=== PATIENT | female | born 1955 | race Caucasian/White ===

== ENCOUNTER 2016-07-04 16:15 | Emergency (ER) | payer MEDICARE, MEDICAID ==
[~2016-07-04] VITALS: Ht 160 cm; Wt 104.5 kg
[~2016-07-04 16:15] MED LIST: ACTOS 45MG45 MG/TAB PO; ANTIVERT 25MG25 MG PO; BACTRIM DS 8001 TAB PO; BENADRYL; BENTYL 20MG TAB20 MG PO; BENTYL 20MG20 MG/TAB PO; CARAFATE 1GM1 G PO; CIPRO 500MG TA500 MG PO; COZAAR 50MG50 MG/TAB PO; CYCLOBENZAPRINE10 MG PO; DARVOCET N 101 UDTAB PO; KLONOPIN 0.5MG0.5 MG PO; LANTUS100 U/ML SQ; LEVAQUIN 5500 MG/TA1 PO; LEVAQUIN 750MG750 M1 PO; LEVOTHYROXINE PO; LEVOXYL0.15 MG PO; LEXAPRO 10MG10 MG PO; MACROBID 1100 MG/CAP PO; NOVOLOG FLEX100 U/ML SQ; PERCOCET 325 MG1 TA2 PO; PERCOCET 5/321 UDTAB PO; PREDNISONE10 MG PO; PRILOSEC 20MG20 MG PO; SYNTHROID0.2 MG/TAB PO; TYLENOL 325MG325 MG PO; WELLBUTRIN 75MG75 MG PO; WELLBUTRIN XL150 MG PO; WELLBUTRIN XL300 M1 PO; ZOCOR 40MG40 MG PO; ZOFRAN 4MG T4 MG/TAB PO
[2016-07-04 17:20] LABS: BASO # 0.1 (0.0-0.2); BASO % 0.7 % (0.0-2.0); EOS # 0.1 (0.0-0.7); EOS % 1.3 % (0-4.0); GRAN % 71.1 % (42.2-75.2); HEMOGLOBIN 13.8 g/dl (12.5-16.0); LYMPH # 1.9 (1.2-3.4); LYMPH % 22.7 % (20.0-51.0); MEAN CELL VOLUME 96 fl (80.0-100.0); MEAN CORPUSCULAR HEMOGLOBIN 33 pg (27.0-31.0); MEAN CORPUSCULAR HGB CONC 35 g/dl (33.0-37.0); MEAN PLATELET VOLUME 11.4 fl (7.4-10.4); MONO # 0.3 (0.1-0.6); MONO % 3.8 % (1.7-9.3); PLATELET COUNT 216 K/mm3 (130-400); RED BLOOD COUNT 4.19 M/mm3 (4.10-5.30); WHITE BLOOD COUNT 8.4 K/mm3 (4.8-10.8)
[2016-07-04 18:14] LABS: ADJUSTED CALCIUM 8.9 mg/dL (8.4-10.2); ALANINE AMINOTRANSFERASE 40 U/L (9-52); ALBUMIN 4.5 gm/dL (3.5-5.0); ALKALINE PHOSPHATASE 126 U/L (50-136); ANION GAP 14 mmol/L (7-16); BLOOD UREA NITROGEN 15 mg/dL (7-17); C-REACTIVE PROTEIN 1.4 mg/dL (0.0-0.9); CALCIUM 9.3 mg/dL (8.4-10.2); CARBON DIOXIDE 23 mmol/L (22-30); CHLORIDE 99 mmol/L (98-107); CREATININE, serum 1.16 mg/dL (0.52-1.25); GLUCOSE 354 mg/dL (74-106); MAGNESIUM 1.7 mg/dL (1.6-2.3); POTASSIUM 4.2 mmol/L (3.4-5.0); SODIUM 136 mmol/L (137-145); TOTAL PROTEIN 8.1 gm/dL (6.4-8.2)
[2016-07-04 18:23] LABS: B-TYPE NATRIURETIC PEPTIDE 28 pg/mL (0-125); TROPONIN-I < 0.012 ng/mL (0.000-0.034)
[2016-07-04] MEDS ORDERED: FLEXERIL 1010 MG/TAB PO (19:19)
[2016-07-04] MEDS ORDERED: NORCO 325 MG-51 TAB PO (19:19)
[2016-07-04 19:33] VITALS: BP 140/88; PULSE 90
== END 2016-07-04 19:32 | disposition home or self-care (01) ==
LOC: COL.ER 16:15
PROVIDERS: Emergency Medicine
DX: S43.402A Unspecified sprain of left shoulder joint, initial encounter (principal); S46.912A Strain of unspecified muscle, fascia and tendon at shoulder and upper arm level, left arm, initial encounter; X50.0XXA Overexertion from strenuous movement or load, initial encounter; I25.2 Old myocardial infarction; E11.9 Type 2 diabetes mellitus without complications; Z79.4 Long term (current) use of insulin
CPT/HCPCS: J1200; J2550; J3010; J7050

== ENCOUNTER 2016-07-08 18:34 | Emergency (ER) | payer MEDICARE, MEDICAID ==
[~2016-07-08] VITALS: Ht 160 cm; Wt 104.5 kg
[~2016-07-08 18:34] MED LIST changes: +FLEXERIL 1010 MG/TAB PO; +NORCO 325 MG-51 TAB PO
[2016-07-08 18:37] VITALS: BP 139/88; TEMP 97.6
[2016-07-08 21:21] VITALS: PULSE 80
== END 2016-07-08 21:00 | disposition home or self-care (01) ==
LOC: COL.ER 18:34
DX: S40.012A Contusion of left shoulder, initial encounter (principal); S16.1XXA Strain of muscle, fascia and tendon at neck level, initial encounter; Y04.2XXA Assault by strike against or bumped into by another person, initial encounter; Y92.009 Unspecified place in unspecified non-institutional (private) residence as the place of occurrence of the external cause

== ENCOUNTER 2016-07-17 16:12 | Observation (INO) | payer MEDICARE, MEDICAID ==
[~2016-07-17] VITALS: Ht 160 cm; Wt 101.8 kg
[2016-07-17 16:40] LABS: BASO % 0.4 % (0.0-2.0); EOS # 0.1 (0.0-0.7); EOS % 1.3 % (0-4.0); GRAN # 7.4 (1.4-6.5); GRAN % 76.6 % (42.2-75.2); HEMATOCRIT 41.8 % (37.0-47.0); HEMOGLOBIN 14.2 g/dl (12.5-16.0); LYMPH # 1.7 (1.2-3.4); LYMPH % 17.5 % (20.0-51.0); MEAN CELL VOLUME 97 fl (80.0-100.0); MEAN CORPUSCULAR HEMOGLOBIN 33 pg (27.0-31.0); MEAN CORPUSCULAR HGB CONC 34 g/dl (33.0-37.0); MEAN PLATELET VOLUME 9.9 fl (7.4-10.4); MONO # 0.4 (0.1-0.6); MONO % 3.8 % (1.7-9.3); PLATELET COUNT 258 K/mm3 (130-400); RED BLOOD COUNT 4.29 M/mm3 (4.10-5.30); REDCELL DISTRIBUTION WIDTH-CV 12.7 % (11.5-14.5); WHITE BLOOD COUNT 9.6 K/mm3 (4.8-10.8)
[2016-07-17 16:52] LABS: ADJUSTED CALCIUM 9.5 mg/dL (8.4-10.2); ALANINE AMINOTRANSFERASE 61 U/L (9-52); ALBUMIN 4.6 gm/dL (3.5-5.0); ALKALINE PHOSPHATASE 157 U/L (50-136); ANION GAP 15 mmol/L (7-16); BLOOD UREA NITROGEN 17 mg/dL (7-17); CARBON DIOXIDE 27 mmol/L (22-30); CHLORIDE 92 mmol/L (98-107); CREATININE, serum 1.23 mg/dL (0.52-1.25); GLUCOSE 393 mg/dL (74-106); POTASSIUM 4.9 mmol/L (3.4-5.0); SODIUM 135 mmol/L (137-145); TOTAL PROTEIN 8.5 gm/dL (6.4-8.2)
[2016-07-17 16:57] LABS: ACETAMINOPHEN < 10 ug/mL (10-30); SALICYLATE < 1.0 mg/dL
[2016-07-17 17:15] LABS: PH 5 (5-8); URINE APPEARANCE Hazy; URINE BACTERIA Many /hpf; URINE BILIRUBIN Negative (NEGATIVE); URINE BLOOD 2+ (NEGATIVE); URINE COLOR Yellow; URINE GLUCOSE 3+ (NEGATIVE); URINE KETONE Trace (NEGATIVE); URINE UROBILINOGEN Negative (NEGATIVE); URINE WBC >50 /hpf
[2016-07-17 17:25] LABS: AMPHETAMINE URINE NEGATIVE; BARBITURATES URINE NEGATIVE; BENZODIAZEPINES URINE NEGATIVE; BUPRENORPHINE URINE NEGATIVE; METHADONE URINE NEGATIVE; OPIATES URINE NEGATIVE; OXYCODONE URINE NEGATIVE; PHENCYCLIDINE URINE NEGATIVE; PROPOXYPHENE URINE NEGATIVE; THC CANNABINOIDS URINE NEGATIVE
[2016-07-17 19:06] LABS: TROPONIN-I < 0.012 ng/mL (0.000-0.034)
[2016-07-18] VITALS (86 sets, daily range): BP systolic 100–111; BP diastolic 60–69; PULSE 84–86; TEMP 97.2–98.1; O2SAT 91–100
[2016-07-19 06:46] LABS: ADJUSTED CALCIUM 9.3 mg/dL (8.4-10.2); ALBUMIN 4.3 gm/dL (3.5-5.0); BILIRUBIN,TOTAL 0.8 mg/dL (0.0-1.0); CALCIUM 9.5 mg/dL (8.4-10.2); CREATININE, serum 1.37 mg/dL (0.52-1.25); POTASSIUM 3.9 mmol/L (3.4-5.0)
[2016-07-19 07:18] VITALS: BP 122/54; PULSE 76; TEMP 97.3
== END 2016-07-19 10:44 ==
LOC: COL.ER 16:12 → ICU 07-18 11:46
PROVIDERS: Emergency Medicine; Psychiatry & Neurology Psychiatry
DX: F33.2 Major depressive disorder, recurrent severe without psychotic features (principal); F41.1 Generalized anxiety disorder; E11.9 Type 2 diabetes mellitus without complications; Z91.14 Patient's other noncompliance with medication regimen; N39.0 Urinary tract infection, site not specified; E03.9 Hypothyroidism, unspecified
CPT/HCPCS: 90791-AI; G0378; G0379; J0696; J1815; J8540

== ENCOUNTER 2016-07-19 12:16 | Observation (INO) | payer MEDICARE, MEDICAID ==
[~2016-07-19] VITALS: Ht 160 cm; Wt 101.8 kg
[2016-07-19 13:56] VITALS: BP 123/76; PULSE 78
[2016-07-19 14:30] VITALS: BP 123/76; PULSE 76; TEMP 97.3
[2016-07-19 20:01] VITALS: BP 111/60; PULSE 81; TEMP 97.7
[2016-07-20 06:38] LABS: ADJUSTED CALCIUM 9.2 mg/dL (8.4-10.2); ALBUMIN 4.2 gm/dL (3.5-5.0); BILIRUBIN,TOTAL 0.7 mg/dL (0.0-1.0); C-REACTIVE PROTEIN 1.8 mg/dL (0.0-0.9); CALCIUM 9.4 mg/dL (8.4-10.2); CREATININE, serum 1.23 mg/dL (0.52-1.25); POTASSIUM 3.9 mmol/L (3.4-5.0); TOTAL PROTEIN 7.6 gm/dL (6.4-8.2)
[2016-07-20 09:00] VITALS: BP 101/52; PULSE 70; TEMP 97
[2016-07-20 21:00] VITALS: BP 106/55; PULSE 78; TEMP 98.1
[2016-07-20 21:17] VITALS: O2SAT 93
[2016-07-21 06:12] LABS: ADJUSTED CALCIUM 9.4 mg/dL (8.4-10.2); ALBUMIN 4.3 gm/dL (3.5-5.0); BILIRUBIN,TOTAL 0.8 mg/dL (0.0-1.0); CALCIUM 9.6 mg/dL (8.4-10.2); CREATININE, serum 1.14 mg/dL (0.52-1.25); POTASSIUM 4.5 mmol/L (3.4-5.0); TOTAL PROTEIN 7.8 gm/dL (6.4-8.2)
[2016-07-21 06:42] LABS: THYROID STIMULATING HORMONE 42.7 uIU/mL (0.465-4.680)
[2016-07-21 08:00] VITALS: BP 120/66; PULSE 64; TEMP 97.3
== END 2016-07-21 18:14 ==
LOC: ICU 12:16
PROVIDERS: Psychiatry & Neurology Psychiatry
DX: R45.851 Suicidal ideations (principal); F33.9 Major depressive disorder, recurrent, unspecified; F39 Unspecified mood [affective] disorder; F41.9 Anxiety disorder, unspecified; E11.9 Type 2 diabetes mellitus without complications; F32.9 Major depressive disorder, single episode, unspecified
CPT/HCPCS: G0378; G0379; J1815; J8540

== ENCOUNTER 2016-09-28 16:07 | Emergency (ER) | payer MEDICARE, MEDICAID ==
[~2016-09-28] VITALS: Ht 160 cm; Wt 109.1 kg
[2016-09-28 16:10] VITALS: BP 112/74; TEMP 98.8
[2016-09-28 16:49] LABS: BASO % 0.3 % (0.0-2.0); EOS # 0.1 (0.0-0.7); EOS % 0.4 % (0-4.0); GRAN # 11.2 (1.4-6.5); GRAN % 79.9 % (42.2-75.2); LYMPH % 14.2 % (20.0-51.0); MEAN CELL VOLUME 93 fl (80.0-100.0); MEAN CORPUSCULAR HGB CONC 34 g/dl (33.0-37.0); MONO # 0.7 (0.1-0.6); MONO % 4.9 % (1.7-9.3); PLATELET COUNT 260 K/mm3 (130-400); RED BLOOD COUNT 3.76 M/mm3 (4.10-5.30); REDCELL DISTRIBUTION WIDTH-CV 12.7 % (11.5-14.5)
[2016-09-28 16:53] LABS: HEMOGLOBIN 11.8 g/dl (12.5-16.0); MEAN CORPUSCULAR HEMOGLOBIN 31 pg (27.0-31.0)
[2016-09-28 17:00] LABS: ADJUSTED CALCIUM 8.9 mg/dL (8.4-10.2); ALANINE AMINOTRANSFERASE 51 U/L (9-52); ALBUMIN 4.1 gm/dL (3.5-5.0); ALKALINE PHOSPHATASE 85 U/L (50-136); ANION GAP 13 mmol/L (7-16); BILIRUBIN,TOTAL 0.6 mg/dL (0.0-1.0); BLOOD UREA NITROGEN 20 mg/dL (7-17); CARBON DIOXIDE 25 mmol/L (22-30); CHLORIDE 101 mmol/L (98-107); CREATININE, serum 1.15 mg/dL (0.52-1.25); GLUCOSE 146 mg/dL (74-106); LIPASE 256 U/L (23-300); POTASSIUM 4.1 mmol/L (3.4-5.0); SODIUM 139 mmol/L (137-145); TOTAL PROTEIN 7.3 gm/dL (6.4-8.2)
[2016-09-28 18:24] LABS: PH 6 (5-8); SQUAMOUS EPITHELIAL 0-2 /hpf; URINE APPEARANCE Clear; URINE BACTERIA Occasional /hpf; URINE BILIRUBIN Negative (NEGATIVE); URINE BLOOD Negative (NEGATIVE); URINE COLOR Yellow; URINE GLUCOSE Negative (NEGATIVE); URINE KETONE Trace (NEGATIVE); URINE UROBILINOGEN Negative (NEGATIVE)
[2016-09-28 18:25] LABS: URINE WBC 20-50 /hpf
[2016-09-28] MEDS ORDERED: OMNICEF 300MG300 MG PO (18:40)
[2016-09-28] MEDS ORDERED: ZOFRAN 4MG T4 MG/TAB PO (18:40)
[2016-09-28 19:15] VITALS: PULSE 75
== END 2016-09-28 19:18 | disposition home or self-care (01) ==
LOC: COL.ER 16:07
PROVIDERS: Emergency Medicine
DX: N39.0 Urinary tract infection, site not specified (principal); R11.2 Nausea with vomiting, unspecified; B96.20 Unspecified Escherichia coli [E. coli] as the cause of diseases classified elsewhere; J44.9 Chronic obstructive pulmonary disease, unspecified; E10.9 Type 1 diabetes mellitus without complications; I10 Essential (primary) hypertension; I25.2 Old myocardial infarction; G40.409 Other generalized epilepsy and epileptic syndromes, not intractable, without status epilepticus; Z95.9 Presence of cardiac and vascular implant and graft, unspecified; Z98.890 Other specified postprocedural states
CPT/HCPCS: J0696; J2405; J2550; J7030

== ENCOUNTER 2016-10-05 12:27 | Emergency (ER) | payer MEDICARE, MEDICAID ==
[~2016-10-05] VITALS: Ht 160 cm; Wt 109.1 kg
[~2016-10-05 12:27] MED LIST changes: +OMNICEF 300MG300 MG PO
[2016-10-05 12:29] VITALS: TEMP 97.5
[2016-10-05] MEDS ORDERED: MYCOSTATIN100000 U/G TP (12:43)
[2016-10-05] MEDS ORDERED: DESITIN MAXIMUM S40% TP (12:46)
[2016-10-05] MEDS ORDERED: HCTZ 25MG TAB25 MG PO (12:48)
[2016-10-05 13:01] LABS: BASO % 0.3 % (0.0-2.0); EOS # 0.2 (0.0-0.7); EOS % 2.3 % (0-4.0); GRAN # 6.7 (1.4-6.5); GRAN % 72.2 % (42.2-75.2); HEMATOCRIT 37.6 % (37.0-47.0); HEMOGLOBIN 12.7 g/dl (12.5-16.0); LYMPH # 1.9 (1.2-3.4); LYMPH % 20.5 % (20.0-51.0); MEAN CELL VOLUME 93 fl (80.0-100.0); MEAN CORPUSCULAR HEMOGLOBIN 31 pg (27.0-31.0); MEAN CORPUSCULAR HGB CONC 34 g/dl (33.0-37.0); MEAN PLATELET VOLUME 9.6 fl (7.4-10.4); MONO # 0.4 (0.1-0.6); MONO % 4.4 % (1.7-9.3); PLATELET COUNT 239 K/mm3 (130-400); RED BLOOD COUNT 4.06 M/mm3 (4.10-5.30); REDCELL DISTRIBUTION WIDTH-CV 13.1 % (11.5-14.5); WHITE BLOOD COUNT 9.3 K/mm3 (4.8-10.8)
[2016-10-05 13:16] LABS: ADJUSTED CALCIUM 8.4 mg/dL (8.4-10.2); ALANINE AMINOTRANSFERASE 48 U/L (9-52); ALKALINE PHOSPHATASE 86 U/L (50-136); ANION GAP 13 mmol/L (7-16); BILIRUBIN,TOTAL 0.7 mg/dL (0.0-1.0); BLOOD UREA NITROGEN 15 mg/dL (7-17); CALCIUM 8.4 mg/dL (8.4-10.2); CARBON DIOXIDE 25 mmol/L (22-30); CHLORIDE 101 mmol/L (98-107); CREATININE, serum 0.95 mg/dL (0.52-1.25); GLUCOSE 233 mg/dL (74-106); POTASSIUM 4.2 mmol/L (3.4-5.0); SODIUM 138 mmol/L (137-145)
[2016-10-05] MEDS ORDERED: PRIL40 PO (13:25)
[2016-10-05] MEDS ORDERED: PEPCID 20MG TAB20 MG PO (13:25)
[2016-10-05] MEDS ORDERED: VITAMIN D 400400 IU PO (13:27)
[2016-10-05] MEDS ORDERED: NEURONTIN300 MG/CAP PO (13:27)
[2016-10-05] MEDS ORDERED: GLUCOPHAGE500 MG/TAB PO (13:28)
[2016-10-05] MEDS ORDERED: EYE DROP ORIGIN15 ML OP (13:28)
[2016-10-05] MEDS ORDERED: CELEXA40 MG PO (13:33)
[2016-10-05] MEDS ORDERED: COLACE 100100 MG/CAP PO (13:35)
[2016-10-05] MEDS ORDERED: MI-ACID 200 MG-1 CT1 PO (13:36)
[2016-10-05] MEDS ORDERED: SEROQUEL300 MG PO (13:37)
[2016-10-05 14:01] LABS: PH 5 (5-8); URINE APPEARANCE Hazy; URINE BACTERIA Rare /hpf; URINE BILIRUBIN Negative (NEGATIVE); URINE BLOOD Negative (NEGATIVE); URINE COLOR Yellow; URINE GLUCOSE Negative (NEGATIVE); URINE KETONE Negative (NEGATIVE); URINE UROBILINOGEN Negative (NEGATIVE)
[2016-10-05] MEDS ORDERED: CIPRO 500MG TA500 MG PO (15:08)
[2016-10-05 15:14] LABS: TROPONIN-I < 0.012 ng/mL (0.000-0.034)
[2016-10-05 16:02] VITALS: BP 123/62; PULSE 65
== END 2016-10-05 16:01 | disposition home or self-care (01) ==
LOC: COL.ER 12:27
PROVIDERS: Emergency Medicine
DX: R11.2 Nausea with vomiting, unspecified (principal); R10.84 Generalized abdominal pain; N39.0 Urinary tract infection, site not specified; B96.20 Unspecified Escherichia coli [E. coli] as the cause of diseases classified elsewhere; E11.9 Type 2 diabetes mellitus without complications; Z91.14 Patient's other noncompliance with medication regimen; Z59.0 Homelessness; E66.9 Obesity, unspecified; Z68.41 Body mass index [BMI] 40.0-44.9, adult; Z79.4 Long term (current) use of insulin
CPT/HCPCS: J0696; J2765; J7030

== ENCOUNTER 2017-01-01 16:55 | Emergency (ER) | payer MEDICARE ==
[~2017-01-01] VITALS: Ht 162.6 cm; Wt 104.5 kg
[~2017-01-01 16:55] MED LIST changes: +CELEXA40 MG PO; +COLACE 100100 MG/CAP PO; +DESITIN MAXIMUM S40% TP; +EYE DROP ORIGIN15 ML OP; +GLUCOPHAGE500 MG/TAB PO; +HCTZ 25MG TAB25 MG PO; +MI-ACID 200 MG-1 CT1 PO; +MYCOSTATIN100000 U/G TP; +NEURONTIN300 MG/CAP PO; +PEPCID 20MG TAB20 MG PO; +PRIL40 PO; +SEROQUEL300 MG PO; +VITAMIN D 400400 IU PO
[2017-01-01 16:57] VITALS: TEMP 97.4
[2017-01-01] MEDS ORDERED: NEXIUM 40MG40 MG PO (17:21)
[2017-01-01] MEDS ORDERED: LANTUS SOLOS100 U/ML SQ (17:23)
[2017-01-01] MEDS ORDERED: SYNTHROID 0.0.025 MG PO (17:24)
[2017-01-01 18:29] LABS: BASO % 0.4 % (0.0-2.0); EOS # 0.2 (0.0-0.7); EOS % 2.3 % (0-4.0); GRAN # 6.1 (1.4-6.5); GRAN % 67.7 % (42.2-75.2); HEMOGLOBIN 12.5 g/dl (12.5-16.0); LYMPH # 2.2 (1.2-3.4); LYMPH % 24.9 % (20.0-51.0); MEAN CELL VOLUME 91 fl (80.0-100.0); MEAN CORPUSCULAR HEMOGLOBIN 31 pg (27.0-31.0); MEAN CORPUSCULAR HGB CONC 35 g/dl (33.0-37.0); MEAN PLATELET VOLUME 10.4 fl (7.4-10.4); MONO # 0.4 (0.1-0.6); MONO % 4.4 % (1.7-9.3); PLATELET COUNT 222 K/mm3 (130-400); RED BLOOD COUNT 3.98 M/mm3 (4.10-5.30); REDCELL DISTRIBUTION WIDTH-CV 13.4 % (11.5-14.5)
[2017-01-01 18:34] LABS: HEMATOCRIT 36.2 % (37.0-47.0)
[2017-01-01 18:42] LABS: ADJUSTED CALCIUM 9.4 mg/dL (8.4-10.2); ALANINE AMINOTRANSFERASE 33 U/L (9-52); ALBUMIN 3.8 gm/dL (3.5-5.0); ALKALINE PHOSPHATASE 96 U/L (50-136); ANION GAP 10 mmol/L (7-16); BILIRUBIN,TOTAL 0.4 mg/dL (0.0-1.0); BLOOD UREA NITROGEN 20 mg/dL (7-17); CALCIUM 9.2 mg/dL (8.4-10.2); CARBON DIOXIDE 28 mmol/L (22-30); CHLORIDE 100 mmol/L (98-107); CREATININE, serum 1.05 mg/dL (0.52-1.25); GLUCOSE 241 mg/dL (74-106); POTASSIUM 4.6 mmol/L (3.4-5.0); SODIUM 138 mmol/L (137-145); TOTAL PROTEIN 6.7 gm/dL (6.4-8.2)
[2017-01-01 18:53] LABS: ACETAMINOPHEN < 10 ug/mL (10-30); SALICYLATE < 1.0 mg/dL
[2017-01-01 19:54] LABS: AMPHETAMINE URINE NEGATIVE; BARBITURATES URINE NEGATIVE; BENZODIAZEPINES URINE NEGATIVE; BUPRENORPHINE URINE NEGATIVE; METHADONE URINE NEGATIVE; OPIATES URINE NEGATIVE; OXYCODONE URINE NEGATIVE; PHENCYCLIDINE URINE NEGATIVE; PROPOXYPHENE URINE NEGATIVE; THC CANNABINOIDS URINE NEGATIVE
[2017-01-01 20:32] VITALS: BP 121/71; PULSE 72
== END 2017-01-01 20:34 | disposition home or self-care (01) ==
LOC: COL.ER 16:55
PROVIDERS: Emergency Medicine
DX: T42.4X1A Poisoning by benzodiazepines, accidental (unintentional), initial encounter (principal); F32.9 Major depressive disorder, single episode, unspecified; F41.9 Anxiety disorder, unspecified; E11.9 Type 2 diabetes mellitus without complications; E03.9 Hypothyroidism, unspecified; Z79.4 Long term (current) use of insulin; Z90.49 Acquired absence of other specified parts of digestive tract
CPT/HCPCS: J7030

== ENCOUNTER 2017-01-18 12:50 | Emergency (ER) | payer MEDICARE ==
[~2017-01-18] VITALS: Ht 160 cm; Wt 109.1 kg
[~2017-01-18 12:50] MED LIST changes: +LANTUS SOLOS100 U/ML SQ; +NEXIUM 40MG40 MG PO; +SYNTHROID 0.0.025 MG PO
[2017-01-18 12:57] VITALS: TEMP 98.1
[2017-01-18 13:55] LABS: BASO % 0.3 % (0.0-2.0); EOS % 0.3 % (0-4.0); GRAN # 10.6 (1.4-6.5); GRAN % 76.5 % (42.2-75.2); HEMATOCRIT 37.1 % (37.0-47.0); HEMOGLOBIN 12.8 g/dl (12.5-16.0); LYMPH # 2.5 (1.2-3.4); LYMPH % 18.2 % (20.0-51.0); MEAN CELL VOLUME 91 fl (80.0-100.0); MEAN CORPUSCULAR HEMOGLOBIN 31 pg (27.0-31.0); MEAN CORPUSCULAR HGB CONC 35 g/dl (33.0-37.0); MEAN PLATELET VOLUME 10.2 fl (7.4-10.4); MONO # 0.6 (0.1-0.6); MONO % 4.4 % (1.7-9.3); PLATELET COUNT 241 K/mm3 (130-400); RED BLOOD COUNT 4.07 M/mm3 (4.10-5.30); REDCELL DISTRIBUTION WIDTH-CV 12.8 % (11.5-14.5); WHITE BLOOD COUNT 13.8 K/mm3 (4.8-10.8)
[2017-01-18 14:00] LABS: INR 1.2 (0.8-3.0); PROTHROMBIN TIME 12.8 SECONDS (9.7-12.8)
[2017-01-18 14:28] LABS: ADJUSTED CALCIUM 9.1 mg/dL (8.4-10.2); ALBUMIN 4.3 gm/dL (3.5-5.0); CALCIUM 9.3 mg/dL (8.4-10.2); CREATININE, serum 1.25 mg/dL (0.52-1.25); TOTAL PROTEIN 7.5 gm/dL (6.4-8.2)
[2017-01-18 14:38] LABS: VENOUS BLOOD GAS BE -1.3 (-4-4); VENOUS BLOOD GAS SAO2 86.6 % (60-80)
[2017-01-18 14:39] LABS: VENOUS BLOOD GAS SITE VENIPUNCTURE
[2017-01-18 15:32] LABS: PH 5 (5-8); URINE APPEARANCE Hazy; URINE BACTERIA Moderate /hpf; URINE BILIRUBIN Negative (NEGATIVE); URINE BLOOD Negative (NEGATIVE); URINE COLOR Yellow; URINE GLUCOSE 3+ (NEGATIVE); URINE KETONE 1+ (NEGATIVE); URINE RBC 0-2 /hpf; URINE UROBILINOGEN Negative (NEGATIVE); URINE WBC 20-50 /hpf
[2017-01-18] MEDS ORDERED: OMNICEF 300MG300 MG PO ×2 (15:59→16:12)
[2017-01-18 16:49] VITALS: BP 106/58; PULSE 86
[2017-01-19] MEDS ORDERED: CIPRO 250MG TA250 MG PO (11:59)
[2017-01-19] MEDS ORDERED: VENTOLIN0.09 MG IH (12:00)
[2017-01-19] MEDS ORDERED: BENTYL 20MG20 MG/TAB PO (12:00)
[2017-01-19] MEDS ORDERED: SYNTHROID0.1 MG/TAB PO (12:01)
[2017-01-19] MEDS ORDERED: LANTUS SOLOS100 U/ML SQ (12:02)
[2017-01-19] MEDS ORDERED: KLONOPIN 0.5MG0.5 MG PO (12:02)
== END 2017-01-18 16:52 | disposition home or self-care (01) ==
LOC: COL.ER 12:50
PROVIDERS: Emergency Medicine
DX: N39.0 Urinary tract infection, site not specified (principal); R53.1 Weakness; Z59.0 Homelessness; E11.9 Type 2 diabetes mellitus without complications; Z79.4 Long term (current) use of insulin
CPT/HCPCS: J0696; J2405; J7030; Q9967

== ENCOUNTER 2017-01-18 19:15 | Observation (INO) | payer MEDICARE ==
[~2017-01-18] VITALS: Ht 160 cm; Wt 96.5 kg
[2017-01-18 20:05] LABS: HEMOGLOBIN 12.5 g/dl (12.5-16.0); MEAN CELL VOLUME 92 fl (80.0-100.0); MEAN CORPUSCULAR HEMOGLOBIN 31 pg (27.0-31.0); MEAN CORPUSCULAR HGB CONC 34 g/dl (33.0-37.0); MEAN PLATELET VOLUME 10.3 fl (7.4-10.4); PLATELET COUNT 257 K/mm3 (130-400)
[2017-01-18 20:16] LABS: ADD PATHOLOGY DIFF REVIEW NO; HEMATOCRIT 36.6 % (37.0-47.0)
[2017-01-18 20:24] LABS: ADJUSTED CALCIUM 8.9 mg/dL (8.4-10.2); ALBUMIN 4.1 gm/dL (3.5-5.0); BILIRUBIN,TOTAL 0.7 mg/dL (0.0-1.0); C-REACTIVE PROTEIN 4.9 mg/dL (0.0-0.9); CREATININE, serum 1.31 mg/dL (0.52-1.25); TOTAL PROTEIN 7.3 gm/dL (6.4-8.2)
[2017-01-18 20:33] LABS: BAND 5 % (0-10); EOSINOPHIL 1 % (0-4); LYMPHOCYTE 23 % (20.0-51.0); NEUTROPHILS 68 % (42.0-75.2); TOTAL CELLS COUNTED 100
[2017-01-18 20:34] LABS: PLATELET ESTIMATE NORMAL (NORMAL)
[2017-01-19 00:06] VITALS: BP 102/50; PULSE 563; TEMP 97.8
[2017-01-19 03:57] VITALS: BP 120/62; PULSE 58; TEMP 97.5
[2017-01-19 07:41] LABS: BASO # 0.1 (0.0-0.2); BASO % 0.5 % (0.0-2.0); EOS # 0.3 (0.0-0.7); EOS % 2.9 % (0-4.0); GRAN # 5.8 (1.4-6.5); GRAN % 63.5 % (42.2-75.2); HEMATOCRIT 33.8 % (37.0-47.0); HEMOGLOBIN 11.2 g/dl (12.5-16.0); LYMPH # 2.5 (1.2-3.4); LYMPH % 27.5 % (20.0-51.0); MEAN CELL VOLUME 94 fl (80.0-100.0); MEAN CORPUSCULAR HEMOGLOBIN 31 pg (27.0-31.0); MEAN CORPUSCULAR HGB CONC 33 g/dl (33.0-37.0); MEAN PLATELET VOLUME 10.6 fl (7.4-10.4); MONO # 0.5 (0.1-0.6); MONO % 5.4 % (1.7-9.3); PLATELET COUNT 230 K/mm3 (130-400); RED BLOOD COUNT 3.59 M/mm3 (4.10-5.30); WHITE BLOOD COUNT 9.1 K/mm3 (4.8-10.8)
[2017-01-19 07:44] LABS: CREATININE, serum 1.1 mg/dL (0.52-1.25)
[2017-01-19 07:55] VITALS: BP 110/51; PULSE 51; TEMP 98.2
[2017-01-19 09:03] VITALS: BP 110/51; PULSE 51; TEMP 98.2
[2017-01-19 11:30] VITALS: BP 93/50; PULSE 51; TEMP 97
[2017-01-19] MEDS ORDERED: CIPRO 250MG TA250 MG PO (11:59)
[2017-01-19] MEDS ORDERED: VENTOLIN0.09 MG IH (12:00)
[2017-01-19] MEDS ORDERED: BENTYL 20MG20 MG/TAB PO (12:00)
[2017-01-19] MEDS ORDERED: SYNTHROID0.1 MG/TAB PO (12:01)
[2017-01-19] MEDS ORDERED: LANTUS SOLOS100 U/ML SQ (12:02)
[2017-01-19] MEDS ORDERED: KLONOPIN 0.5MG0.5 MG PO (12:02)
[2017-01-19 14:16] VITALS: BP 93/50; PULSE 51; TEMP 97
== END 2017-01-19 15:33 ==
LOC: COL.ER 19:15 → MEDICAL 21:32
PROVIDERS: Emergency Medicine; Nurse Practitioner Family
DX: K52.9 Noninfective gastroenteritis and colitis, unspecified (principal); E66.01 Morbid (severe) obesity due to excess calories; E11.40 Type 2 diabetes mellitus with diabetic neuropathy, unspecified; K21.9 Gastro-esophageal reflux disease without esophagitis; N39.0 Urinary tract infection, site not specified; E03.9 Hypothyroidism, unspecified; Z90.49 Acquired absence of other specified parts of digestive tract; Z79.4 Long term (current) use of insulin; Z95.818 Presence of other cardiac implants and grafts
CPT/HCPCS: 90791-AI; G0378; G8978-GP; G8979-GP; G8987-GO; G8988-GO; J0696; J1644; J1815; J2405; J7030

== ENCOUNTER 2017-01-29 21:02 | Emergency (ER) | payer MEDICARE ==
[~2017-01-29] VITALS: Ht 160 cm; Wt 96.4 kg
[~2017-01-29 21:02] MED LIST changes: +CIPRO 250MG TA250 MG PO; +SYNTHROID0.1 MG/TAB PO; +VENTOLIN0.09 MG IH
[2017-01-29 21:04] VITALS: TEMP 98.9
[2017-01-29 21:21] LABS: BASO # 0.1 (0.0-0.2); BASO % 0.4 % (0.0-2.0); EOS # 0.4 (0.0-0.7); EOS % 3.5 % (0-4.0); GRAN # 8.3 (1.4-6.5); GRAN % 68.7 % (42.2-75.2); LYMPH # 2.7 (1.2-3.4); LYMPH % 22.3 % (20.0-51.0); MEAN CELL VOLUME 96 fl (80.0-100.0); MEAN CORPUSCULAR HGB CONC 33 g/dl (33.0-37.0); MEAN PLATELET VOLUME 9.8 fl (7.4-10.4); MONO # 0.6 (0.1-0.6); MONO % 4.6 % (1.7-9.3); PLATELET COUNT 225 K/mm3 (130-400); RED BLOOD COUNT 3.71 M/mm3 (4.10-5.30); REDCELL DISTRIBUTION WIDTH-CV 13.2 % (11.5-14.5); WHITE BLOOD COUNT 12.1 K/mm3 (4.8-10.8)
[2017-01-29 21:22] LABS: HEMOGLOBIN 11.6 g/dl (12.5-16.0); MEAN CORPUSCULAR HEMOGLOBIN 31 pg (27.0-31.0)
[2017-01-29 21:23] LABS: HEMATOCRIT 35.5 % (37.0-47.0)
[2017-01-29] MEDS ORDERED: VENTOLIN0.09 MG IH (21:30)
[2017-01-29] MEDS ORDERED: TYLENOL 325MG325 MG PO (21:35)
[2017-01-29] MEDS ORDERED: DESYREL 50MG50 MG PO (21:36)
[2017-01-29] MEDS ORDERED: FARXIGA10 PO (21:36)
[2017-01-29 21:53] LABS: ADJUSTED CALCIUM 8.7 mg/dL (8.4-10.2); ALANINE AMINOTRANSFERASE 32 U/L (9-52); ALBUMIN 4.1 gm/dL (3.5-5.0); ALKALINE PHOSPHATASE 110 U/L (50-136); ANION GAP 13 mmol/L (7-16); BILIRUBIN,TOTAL 0.3 mg/dL (0.0-1.0); BLOOD UREA NITROGEN 20 mg/dL (7-17); CALCIUM 8.8 mg/dL (8.4-10.2); CARBON DIOXIDE 24 mmol/L (22-30); CHLORIDE 98 mmol/L (98-107); CREATININE, serum 1.17 mg/dL (0.52-1.25); GLUCOSE 259 mg/dL (74-106); POTASSIUM 4.3 mmol/L (3.4-5.0); SODIUM 136 mmol/L (137-145); TOTAL PROTEIN 7.1 gm/dL (6.4-8.2)
[2017-01-29 22:04] LABS: TROPONIN-I < 0.012 ng/mL (0.000-0.034)
[2017-01-29] MEDS ORDERED: CEPHALEXIN500 M1 PO (23:26)
[2017-01-29] MEDS ORDERED: NORCO 325 MG-51 TAB PO (23:27)
[2017-01-29 23:30] VITALS: BP 114/73; PULSE 58
== END 2017-01-30 00:05 | disposition home or self-care (01) ==
LOC: COL.ER 21:02
PROVIDERS: Emergency Medicine
DX: S01.81XA Laceration without foreign body of other part of head, initial encounter (principal); R42 Dizziness and giddiness; E11.9 Type 2 diabetes mellitus without complications; E66.9 Obesity, unspecified; F25.9 Schizoaffective disorder, unspecified; Z68.37 Body mass index [BMI] 37.0-37.9, adult; F31.9 Bipolar disorder, unspecified; W01.198A Fall on same level from slipping, tripping and stumbling with subsequent striking against other object, initial encounter; Y92.129 Unspecified place in nursing home as the place of occurrence of the external cause
CPT/HCPCS: J3010

== ENCOUNTER → 2017-01-31 | Outpatient (CLI) | payer MEDICARE ==
[~2017-01-31] MED LIST changes: +CEPHALEXIN500 M1 PO; +DESYREL 50MG50 MG PO; +FARXIGA10 PO
[2017-01-31 17:42] LABS: AMPHETAMINE URINE NEGATIVE
[2017-01-31 17:43] LABS: BARBITURATES URINE NEGATIVE; BENZODIAZEPINES URINE NEGATIVE; BUPRENORPHINE URINE NEGATIVE; METHADONE URINE NEGATIVE; OPIATES URINE POSITIVE; OXYCODONE URINE NEGATIVE; PHENCYCLIDINE URINE NEGATIVE; PROPOXYPHENE URINE NEGATIVE; THC CANNABINOIDS URINE NEGATIVE
== END ==
LOC: ZCOL.LAB 17:12
PROVIDERS: Psychiatry & Neurology Psychiatry
DX: Z79.899 Other long term (current) drug therapy (principal)

== ENCOUNTER → 2017-02-01 | Outpatient (CLI) | payer MEDICARE | LOC: COL.RAD 01-29 12:45 | DX: D25.9 Leiomyoma of uterus, unspecified (principal); R93.8 Abnormal findings on diagnostic imaging of other specified body structures ==

== ENCOUNTER → 2017-05-18 | Outpatient (CLI) | payer MEDICARE ==
[2017-05-18 05:10] LABS: ALBUMIN 3.8 gm/dL (3.5-5.0); BILIRUBIN,TOTAL 0.3 mg/dL (0.0-1.0); CALCIUM 9.5 mg/dL (8.4-10.2); CHOLESTEROL RISK RATIO 3.5; MAGNESIUM 2.1 mg/dL (1.6-2.3); POTASSIUM 4.7 mmol/L (3.4-5.0); TOTAL PROTEIN 6.4 gm/dL (6.4-8.2)
[2017-05-18 05:39] LABS: THYROID STIMULATING HORMONE 5.39 uIU/mL (0.465-4.680)
== END ==
LOC: ZCOL.LAB 04:43
PROVIDERS: Family Medicine
DX: E11.40 Type 2 diabetes mellitus with diabetic neuropathy, unspecified (principal); E78.5 Hyperlipidemia, unspecified; E03.8 Other specified hypothyroidism; R79.89 Other specified abnormal findings of blood chemistry; E83.42 Hypomagnesemia; M62.81 Muscle weakness (generalized)

== ENCOUNTER 2017-07-12 11:19 | Emergency (ER) | payer MEDICARE ==
[~2017-07-12] VITALS: Ht 160 cm; Wt 92.7 kg
[2017-07-12 11:22] VITALS: TEMP 98.3
[2017-07-12 12:08] LABS: COLLECTION METHOD CLEAN CATCH
[2017-07-12 12:13] LABS: BASO % 0.4 % (0.0-2.0); EOS # 0.3 (0.0-0.7); EOS % 2.7 % (0-4.0); GRAN # 8.9 (1.4-6.5); GRAN % 78.4 % (42.2-75.2); HEMATOCRIT 42.9 % (37.0-47.0); HEMOGLOBIN 14.3 g/dl (12.5-16.0); LYMPH # 1.6 (1.2-3.4); LYMPH % 14.1 % (20.0-51.0); MEAN CELL VOLUME 93 fl (80.0-100.0); MEAN CORPUSCULAR HEMOGLOBIN 31 pg (27.0-31.0); MEAN CORPUSCULAR HGB CONC 33 g/dl (33.0-37.0); MEAN PLATELET VOLUME 9.3 fl (7.4-10.4); MONO # 0.5 (0.1-0.6); PLATELET COUNT 278 K/mm3 (130-400); REDCELL DISTRIBUTION WIDTH-CV 13.2 % (11.5-14.5)
[2017-07-12 12:15] LABS: MUCOUS Present /lpf; PH 5 (5-8); URINE APPEARANCE Clear; URINE BACTERIA Rare /hpf; URINE BILIRUBIN Negative (NEGATIVE); URINE BLOOD Negative (NEGATIVE); URINE COLOR Yellow; URINE GLUCOSE 3+ (NEGATIVE); URINE KETONE Negative (NEGATIVE); URINE LEUKOCYTE ESTERASE Trace (NEGATIVE); URINE NITRATE Positive (NEGATIVE); URINE PROTEIN(semi-quant) Negative (NEGATIVE); URINE RBC 0-2 /hpf; URINE UROBILINOGEN Negative (NEGATIVE)
[2017-07-12 12:25] LABS: ALANINE AMINOTRANSFERASE 37 U/L (9-52); ALBUMIN 4.5 gm/dL (3.5-5.0); ALKALINE PHOSPHATASE 157 U/L (50-136); ANION GAP 10 mmol/L (7-16); AST,SGOT 19 U/L (15-37); BILIRUBIN,TOTAL 0.4 mg/dL (0.0-1.0); BLOOD UREA NITROGEN 18 mg/dL (7-17); CALCIUM 9.1 mg/dL (8.4-10.2); CARBON DIOXIDE 27 mmol/L (22-30); CHLORIDE 99 mmol/L (98-107); CREATININE, serum 1.11 mg/dL (0.52-1.25); GLUCOSE 280 mg/dL (74-106); POTASSIUM 4.5 mmol/L (3.4-5.0); SODIUM 136 mmol/L (137-145); TOTAL PROTEIN 7.7 gm/dL (6.4-8.2)
[2017-07-12 12:26] LABS: TRICYCLIC ANTIDEPRESS URINE NEGATIVE
[2017-07-12 12:26] LABS: ACETAMINOPHEN < 10 ug/mL (10-30); ALCOHOL(ethanol),MEDICAL < 10 mg/dL; SALICYLATE < 1.0 mg/dL
[2017-07-12] MEDS ORDERED: CORRECTIVE LAXAT5 MG PO (12:46)
[2017-07-12] MEDS ORDERED: STRATTERA 10MG10 MG PO (12:46)
[2017-07-12] MEDS ORDERED: LIPITOR 10MG10 MG PO (12:47)
[2017-07-12] MEDS ORDERED: NOVOLOG FLEX100 U/ML (12:48)
[2017-07-12] MEDS ORDERED: TRESIBA FL100 UNIT/1 SQ (12:50)
[2017-07-12] MEDS ORDERED: NORCO 325 MG-7.1 TAB (12:50)
[2017-07-12] MEDS ORDERED: CYMBALTA 30MG30 MG PO (12:51)
[2017-07-12 16:53] VITALS: BP 147/78
[2017-07-12 18:49] VITALS: PULSE 82
== END 2017-07-12 18:51 ==
LOC: COL.ER 11:19
PROVIDERS: Physician Assistant
DX: R45.851 Suicidal ideations (principal); F31.9 Bipolar disorder, unspecified; F20.9 Schizophrenia, unspecified; Z79.4 Long term (current) use of insulin

== ENCOUNTER → 2017-10-08 | Outpatient (CLI) | payer MEDICARE ==
[~2017-10-08] MED LIST changes: +CORRECTIVE LAXAT5 MG PO; +CYMBALTA 30MG30 MG PO; +LIPITOR 10MG10 MG PO; +NORCO 325 MG-7.1 TAB; +NOVOLOG FLEX100 U/ML; +STRATTERA 10MG10 MG PO; +TRESIBA FL100 UNIT/1 SQ
[2017-10-08 09:23] LABS: ALBUMIN 3.7 gm/dL (3.5-5.0); BILIRUBIN,TOTAL 0.4 mg/dL (0.0-1.0); CALCIUM 9.1 mg/dL (8.4-10.2); CREATININE, serum 0.88 mg/dL (0.52-1.25); TOTAL PROTEIN 6.7 gm/dL (6.4-8.2)
== END ==
LOC: ZCOL.LAB 08:58
PROVIDERS: Family Medicine
DX: E11.9 Type 2 diabetes mellitus without complications (principal)

== ENCOUNTER → 2017-12-26 | Outpatient (CLI) | payer MEDICARE | LOC: ZCOL.LAB 15:20 | DX: E11.40 Type 2 diabetes mellitus with diabetic neuropathy, unspecified (principal) ==

== ENCOUNTER → 2017-12-26 | Outpatient (CLI) | payer MEDICARE ==
[2017-12-26 12:16] LABS: BASO % 0.4 % (0.0-2.0); EOS # 0.2 (0.0-0.7); EOS % 2.5 % (0-4.0); GRAN # 5.7 (1.4-6.5); GRAN % 67.7 % (42.2-75.2); HEMATOCRIT 38.8 % (37.0-47.0); HEMOGLOBIN 12.8 g/dl (12.5-16.0); LYMPH % 24.1 % (20.0-51.0); MEAN CELL VOLUME 93 fl (80.0-100.0); MEAN CORPUSCULAR HEMOGLOBIN 31 pg (27.0-31.0); MEAN CORPUSCULAR HGB CONC 33 g/dl (33.0-37.0); MEAN PLATELET VOLUME 10.4 fl (7.4-10.4); MONO # 0.4 (0.1-0.6); MONO % 4.8 % (1.7-9.3); PLATELET COUNT 255 K/mm3 (130-400); RED BLOOD COUNT 4.19 M/mm3 (4.10-5.30); REDCELL DISTRIBUTION WIDTH-CV 12.8 % (11.5-14.5)
[2017-12-26 12:46] LABS: CHOLESTEROL RISK RATIO 3.8
[2017-12-26 13:17] LABS: THYROID STIMULATING HORMONE 11.8 uIU/mL (0.465-4.680)
== END ==
LOC: ZCOL.LAB 12:04
PROVIDERS: Family Medicine
DX: E03.8 Other specified hypothyroidism (principal); D64.9 Anemia, unspecified; E78.5 Hyperlipidemia, unspecified

== ENCOUNTER → 2018-02-06 | Outpatient (CLI) | payer MEDICARE | LOC: MC.RAD 10:55 | DX: Z12.31 Encounter for screening mammogram for malignant neoplasm of breast (principal) ==

== ENCOUNTER → 2018-03-18 | Outpatient (CLI) | payer MEDICARE | LOC: ZCOL.LAB 11:35 | DX: E11.40 Type 2 diabetes mellitus with diabetic neuropathy, unspecified (principal) ==

== ENCOUNTER → 2018-07-25 | Outpatient (CLI) | payer MEDICARE ==
[2018-07-25 18:49] LABS: COLLECTION METHOD CLEAN CATCH
[2018-07-25 19:19] LABS: MUCOUS Present /lpf; PH 5 (5-8); SQUAMOUS EPITHELIAL 0-2 /hpf; URINE APPEARANCE Clear; URINE BACTERIA Rare /hpf; URINE BILIRUBIN Negative (NEGATIVE); URINE BLOOD Negative (NEGATIVE); URINE COLOR Yellow; URINE GLUCOSE 3+ (NEGATIVE); URINE KETONE Trace (NEGATIVE); URINE LEUKOCYTE ESTERASE Negative (NEGATIVE); URINE NITRATE Positive (NEGATIVE); URINE PROTEIN(semi-quant) Negative (NEGATIVE); URINE RBC None Seen /hpf; URINE UROBILINOGEN Negative (NEGATIVE); URINE WBC 0-2 /hpf
== END ==
LOC: COL.LAB 18:34
DX: N39.0 Urinary tract infection, site not specified (principal)

== ENCOUNTER → 2018-07-25 | Outpatient (CLI) | payer MEDICARE | LOC: ZCOL.LAB 16:12 | DX: N39.0 Urinary tract infection, site not specified (principal) ==

== ENCOUNTER 2018-09-04 21:53 | Emergency (ER) | payer MEDICARE ==
[~2018-09-04] VITALS: Ht 160 cm; Wt 117.3 kg
[2018-09-04 21:56] VITALS: TEMP 97
[2018-09-04 22:20] LABS: COLLECTION METHOD CLEAN CATCH
[2018-09-04 22:29] LABS: PH 5 (5-8); SQUAMOUS EPITHELIAL 0-2 /hpf; URINE APPEARANCE Hazy; URINE BACTERIA Many /hpf; URINE BILIRUBIN Negative (NEGATIVE); URINE BLOOD Negative (NEGATIVE); URINE COLOR Yellow; URINE GLUCOSE 2+ (NEGATIVE); URINE KETONE Trace (NEGATIVE); URINE LEUKOCYTE ESTERASE Negative (NEGATIVE); URINE NITRATE Positive (NEGATIVE); URINE PROTEIN(semi-quant) 1+ (NEGATIVE); URINE RBC None Seen /hpf; URINE UROBILINOGEN Negative (NEGATIVE)
[2018-09-04 22:51] LABS: BASO % 0.4 % (0.0-2.0); EOS # 0.1 (0.0-0.7); EOS % 1.2 % (0-4.0); GRAN # 7.1 (1.4-6.5); GRAN % 64.2 % (42.2-75.2); HEMATOCRIT 37.2 % (37.0-47.0); HEMOGLOBIN 11.8 g/dl (12.5-16.0); LYMPH # 2.9 (1.2-3.4); LYMPH % 26.6 % (20.0-51.0); MEAN CELL VOLUME 96 fl (80.0-100.0); MEAN CORPUSCULAR HEMOGLOBIN 31 pg (27.0-31.0); MEAN CORPUSCULAR HGB CONC 32 g/dl (33.0-37.0); MEAN PLATELET VOLUME 9.4 fl (7.4-10.4); MONO # 0.8 (0.1-0.6); MONO % 7.1 % (1.7-9.3); PLATELET COUNT 160 K/mm3 (130-400); RED BLOOD COUNT 3.86 M/mm3 (4.10-5.30)
[2018-09-04 23:09] LABS: ALANINE AMINOTRANSFERASE 16 U/L (9-52); ALBUMIN 3.8 gm/dL (3.5-5.0); ALKALINE PHOSPHATASE 124 U/L (50-136); ANION GAP 9 mmol/L (7-16); AST,SGOT 25 U/L (15-37); BILIRUBIN,TOTAL 0.3 mg/dL (0.0-1.0); BLOOD UREA NITROGEN 30 mg/dL (7-17); CALCIUM 8.9 mg/dL (8.4-10.2); CARBON DIOXIDE 24 mmol/L (22-30); CHLORIDE 104 mmol/L (98-107); CREATININE, serum 1.22 (0.52-1.25); GLUCOSE 334 mg/dL (74-106); POTASSIUM 4.8 mmol/L (3.4-5.0); SODIUM 137 mmol/L (137-145)
[2018-09-04 23:21] LABS: TROPONIN-I < 0.012 ng/mL (0.000-0.035)
[2018-09-04] MEDS ORDERED: CEPHALEXIN500 M1 PO (23:34)
[2018-09-04] MEDS ORDERED: LASIX 20MG TABL20 MG PO (23:38)
[2018-09-05 00:15] VITALS: BP 110/60; PULSE 80
== END 2018-09-05 00:35 | disposition home or self-care (01) ==
LOC: COL.ER 21:53
PROVIDERS: Emergency Medicine
DX: N39.0 Urinary tract infection, site not specified (principal); R53.1 Weakness; G89.29 Other chronic pain; M25.512 Pain in left shoulder; E11.9 Type 2 diabetes mellitus without complications; K21.9 Gastro-esophageal reflux disease without esophagitis; K58.9 Irritable bowel syndrome, unspecified; E03.9 Hypothyroidism, unspecified; E66.9 Obesity, unspecified; J44.9 Chronic obstructive pulmonary disease, unspecified; F25.9 Schizoaffective disorder, unspecified; Z68.42 Body mass index [BMI] 45.0-49.9, adult; Z90.49 Acquired absence of other specified parts of digestive tract; Z79.4 Long term (current) use of insulin
CPT/HCPCS: J1885

== ENCOUNTER 2018-10-14 13:43 | Emergency (ER) | payer MEDICARE, MEDICAID ==
[~2018-10-14] VITALS: Ht 160 cm; Wt 109.1 kg
[~2018-10-14 13:43] MED LIST changes: +LASIX 20MG TABL20 MG PO
[2018-10-14 13:52] VITALS: BP 179/78; TEMP 97.3
[2018-10-14 14:45] LABS: COLLECTION METHOD CLEAN CATCH
[2018-10-14 15:06] LABS: TRICYCLIC ANTIDEPRESS URINE NEGATIVE
[2018-10-14 15:07] LABS: BASO % 0.3 % (0.0-2.0); EOS # 0.2 (0.0-0.7); GRAN # 6.1 (1.4-6.5); GRAN % 67.9 % (42.2-75.2); HEMOGLOBIN 11.6 g/dl (12.5-16.0); LYMPH # 2.2 (1.2-3.4); LYMPH % 24.2 % (20.0-51.0); MEAN CELL VOLUME 95 fl (80.0-100.0); MEAN CORPUSCULAR HEMOGLOBIN 31 pg (27.0-31.0); MEAN CORPUSCULAR HGB CONC 33 g/dl (33.0-37.0); MEAN PLATELET VOLUME 9.3 fl (7.4-10.4); MONO # 0.5 (0.1-0.6); MONO % 5.2 % (1.7-9.3); PLATELET COUNT 161 K/mm3 (130-400); RED BLOOD COUNT 3.77 M/mm3 (4.10-5.30); REDCELL DISTRIBUTION WIDTH-CV 13.3 % (11.5-14.5)
[2018-10-14 15:09] LABS: HEMATOCRIT 35.7 % (37.0-47.0)
[2018-10-14 15:11] LABS: PH 6 (5-8); SQUAMOUS EPITHELIAL 0-2 /hpf; URINE APPEARANCE Clear; URINE BACTERIA None Seen /hpf; URINE BILIRUBIN Negative (NEGATIVE); URINE BLOOD Negative (NEGATIVE); URINE COLOR Yellow; URINE GLUCOSE 2+ (NEGATIVE); URINE KETONE Trace (NEGATIVE); URINE LEUKOCYTE ESTERASE Trace (NEGATIVE); URINE NITRATE Negative (NEGATIVE); URINE PROTEIN(semi-quant) Negative (NEGATIVE); URINE UROBILINOGEN Negative (NEGATIVE)
[2018-10-14 15:17] LABS: ALANINE AMINOTRANSFERASE 24 U/L (9-52); ALBUMIN 3.8 gm/dL (3.5-5.0); ALKALINE PHOSPHATASE 93 U/L (50-136); ANION GAP 9 mmol/L (7-16); AST,SGOT 21 U/L (15-37); BILIRUBIN,TOTAL 0.2 mg/dL (0.0-1.0); BLOOD UREA NITROGEN 25 mg/dL (7-17); CALCIUM 8.8 mg/dL (8.4-10.2); CARBON DIOXIDE 31 mmol/L (22-30); CHLORIDE 99 mmol/L (98-107); CREATININE, serum 1.14 (0.52-1.25); GLUCOSE 191 mg/dL (74-106); POTASSIUM 4.5 mmol/L (3.4-5.0); SODIUM 140 mmol/L (137-145); TOTAL PROTEIN 6.9 gm/dL (6.4-8.2)
[2018-10-14 15:20] LABS: ACETAMINOPHEN < 10 ug/mL (10-30); ALCOHOL(ethanol),MEDICAL < 10 mg/dL; SALICYLATE < 1.0 mg/dL
[2018-10-14] MEDS ORDERED: VITAMIN D 1001000 IU PO (15:59)
[2018-10-14] MEDS ORDERED: MILK OF MA400 MG/52 PO (15:59)
[2018-10-14] MEDS ORDERED: PEPCID AC 10MG10 MG PO (16:00)
[2018-10-14] MEDS ORDERED: MELATIN 3 MG-11 TAB PO (16:00)
[2018-10-14] MEDS ORDERED: REMERON 15M15 MG/TA1 PO (16:01)
[2018-10-14] MEDS ORDERED: DESYREL 50MG50 MG PO (16:01)
[2018-10-14] MEDS ORDERED: RISPERDAL 0.5M0.5 MG PO (16:02)
[2018-10-14] MEDS ORDERED: SORE THROAT LOZ1 LO1 PO (16:03)
[2018-10-14] MEDS ORDERED: WELLBUTRIN XL300 M1 PO (16:03)
[2018-10-14] MEDS ORDERED: BENTYL 10MG10 MG/CAP PO (16:05)
[2018-10-14] MEDS ORDERED: CALCIUM ANTACI500 MG PO (16:05)
[2018-10-14] MEDS ORDERED: FLONASE NASAL S16 GM NAS (16:07)
[2018-10-14] MEDS ORDERED: NEURONTIN400 MG/CAP PO (16:07)
[2018-10-14] MEDS ORDERED: PROBIOTIC GOLD1 EACH PO (16:08)
[2018-10-14] MEDS ORDERED: MAG-AL LIQUID 230 ML PO (16:09)
[2018-10-14] MEDS ORDERED: BIOFREEZE 0.2%-1 GE1 TOP (16:09)
[2018-10-14] MEDS ORDERED: ZOFRAN 4MG T4 MG/TAB PO (16:10)
[2018-10-14] MEDS ORDERED: MACROBID 1100 MG/CAP PO (17:11)
[2018-10-15 00:45] VITALS: PULSE 89
== END 2018-10-15 00:50 ==
LOC: COL.ER 13:43
PROVIDERS: Nurse Practitioner
DX: N39.0 Urinary tract infection, site not specified (principal); K21.9 Gastro-esophageal reflux disease without esophagitis; F17.210 Nicotine dependence, cigarettes, uncomplicated; F32.9 Major depressive disorder, single episode, unspecified; E11.9 Type 2 diabetes mellitus without complications; Z79.4 Long term (current) use of insulin; Z79.51 Long term (current) use of inhaled steroids

== ENCOUNTER 2018-11-01 17:41 | Emergency (ER) | payer MEDICARE, MEDICAID ==
[~2018-11-01] VITALS: Ht 160 cm; Wt 112.7 kg
[~2018-11-01 17:41] MED LIST changes: +BENTYL 10MG10 MG/CAP PO; +BIOFREEZE 0.2%-1 GE1 TOP; +CALCIUM ANTACI500 MG PO; +FLONASE NASAL S16 GM NAS; +MAG-AL LIQUID 230 ML PO; +MELATIN 3 MG-11 TAB PO; +MILK OF MA400 MG/52 PO; +NEURONTIN400 MG/CAP PO; +PEPCID AC 10MG10 MG PO; +PROBIOTIC GOLD1 EACH PO; +REMERON 15M15 MG/TA1 PO; +RISPERDAL 0.5M0.5 MG PO; +SORE THROAT LOZ1 LO1 PO; +VITAMIN D 1001000 IU PO
[2018-11-01 17:45] VITALS: BP 144/86; PULSE 89; TEMP 97.8
[2018-11-01] MEDS ORDERED: VITAMIN D 1001000 IU (23:04)
[2018-11-01] MEDS ORDERED: LIPITOR 10MG10 MG PO (23:04)
[2018-11-01] MEDS ORDERED: PRILOSEC 20MG20 MG PO (23:05)
[2018-11-01] MEDS ORDERED: PEPCID 20MG TAB20 MG (23:05)
[2018-11-01] MEDS ORDERED: LEVOXYL0.05 MG PO (23:06)
[2018-11-01] MEDS ORDERED: LASIX 20MG TABL20 MG PO (23:06)
[2018-11-01] MEDS ORDERED: REMERON 15M15 MG/TA1 PO (23:07)
[2018-11-01] MEDS ORDERED: WELLBUTRIN XL300 M1 PO (23:07)
[2018-11-01] MEDS ORDERED: NEURONTIN100 MG/CAP PO (23:08)
[2018-11-01] MEDS ORDERED: CARAFATE 1GM1 G PO (23:08)
[2018-11-01] MEDS ORDERED: HUMALOG100 U/ML SQ (23:08)
[2018-11-01] MEDS ORDERED: FLAGYL500 MG PO (23:09)
[2018-11-01] MEDS ORDERED: AZULFIDINE500 MG/TAB PO (23:09)
[2018-11-01] MEDS ORDERED: GAS AID MAXIMU125 MG PO (23:09)
== END 2018-11-01 18:53 | disposition home or self-care (01) ==
LOC: COL.ER 17:41
DX: M25.562 Pain in left knee (principal); G89.29 Other chronic pain; F17.210 Nicotine dependence, cigarettes, uncomplicated; Z79.51 Long term (current) use of inhaled steroids; Z79.4 Long term (current) use of insulin

== ENCOUNTER → 2018-11-15 | Outpatient (CLI) | payer MEDICARE, MEDICAID ==
[~2018-11-15] MED LIST changes: +AZULFIDINE500 MG/TAB PO; +FLAGYL500 MG PO; +GAS AID MAXIMU125 MG PO; +HUMALOG100 U/ML SQ; +LEVOXYL0.05 MG PO; +NEURONTIN100 MG/CAP PO; +PEPCID 20MG TAB20 MG; +VITAMIN D 1001000 IU
== END ==
LOC: ZCOL.LAB 16:38
DX: E78.5 Hyperlipidemia, unspecified (principal)

== ENCOUNTER → 2018-12-19 | Outpatient (CLI) | payer MEDICARE, MEDICAID | LOC: ZCOL.LAB 16:25 | DX: E11.21 Type 2 diabetes mellitus with diabetic nephropathy (principal) ==

== ENCOUNTER → 2018-12-23 | Outpatient (CLI) | payer MEDICARE, MEDICAID ==
[2018-12-23 01:30] LABS: COLLECTION METHOD CLEAN CATCH
[2018-12-23 01:39] LABS: MUCOUS Present /lpf; PH 5 (5-8); SQUAMOUS EPITHELIAL 0-2 /hpf; URINE APPEARANCE Hazy; URINE BACTERIA Occasional /hpf; URINE BILIRUBIN Negative (NEGATIVE); URINE BLOOD 2+ (NEGATIVE); URINE COLOR Yellow; URINE GLUCOSE 1+ (NEGATIVE); URINE KETONE Negative (NEGATIVE); URINE LEUKOCYTE ESTERASE Negative (NEGATIVE); URINE NITRATE Positive (NEGATIVE); URINE PROTEIN(semi-quant) Negative (NEGATIVE); URINE UROBILINOGEN Negative (NEGATIVE)
== END ==
LOC: ZCOL.LAB 01:06
PROVIDERS: Family Medicine
DX: Z11.2 Encounter for screening for other bacterial diseases (principal); N39.0 Urinary tract infection, site not specified

== ENCOUNTER 2018-12-31 10:15 | Outpatient (RCR) | payer MEDICARE, MEDICAID | END 2019-01-07 13:24 | disposition home or self-care (01) | LOC: WSC 10:15 | DX: M25.562 Pain in left knee (principal); Z90.49 Acquired absence of other specified parts of digestive tract; Z90.5 Acquired absence of kidney; Z98.890 Other specified postprocedural states; Z98.41 Cataract extraction status, right eye; Z98.42 Cataract extraction status, left eye | CPT/HCPCS: G0283-GP ==

== ENCOUNTER → 2019-04-25 | Outpatient (CLI) | payer MEDICARE, MEDICAID ==
[2019-04-25 15:33] LABS: COLLECTION METHOD CLEAN CATCH
[2019-04-25 15:48] LABS: MUCOUS Present /lpf; PH 5 (5-8); SQUAMOUS EPITHELIAL 0-2 /hpf; URINE APPEARANCE Hazy; URINE BACTERIA Moderate /hpf; URINE BILIRUBIN Negative (NEGATIVE); URINE BLOOD Negative (NEGATIVE); URINE COLOR Yellow; URINE GLUCOSE 3+ (NEGATIVE); URINE KETONE Negative (NEGATIVE); URINE LEUKOCYTE ESTERASE Trace (NEGATIVE); URINE NITRATE Negative (NEGATIVE); URINE PROTEIN(semi-quant) Negative (NEGATIVE); URINE RBC 0-2 /hpf; URINE UROBILINOGEN Negative (NEGATIVE)
== END ==
LOC: ZCOL.LAB 15:10
PROVIDERS: Family Medicine
DX: N39.0 Urinary tract infection, site not specified (principal)

== ENCOUNTER → 2019-06-29 | Outpatient (CLI) | payer MEDICARE, MEDICAID | LOC: ZCOL.LAB 16:50 → COL.LAB 16:50 | DX: J10.1 Influenza due to other identified influenza virus with other respiratory manifestations (principal) ==

== ENCOUNTER → 2019-07-29 | Outpatient (CLI) | payer MEDICARE, MEDICAID ==
[2019-07-29 15:53] LABS: ALBUMIN 3.7 gm/dL (3.5-5.0); BILIRUBIN,TOTAL 0.2 mg/dL (0.0-1.0); CALCIUM 8.8 mg/dL (8.4-10.2); CREATININE, serum 0.96 (0.52-1.25); POTASSIUM 4.5 mmol/L (3.4-5.0); TOTAL PROTEIN 6.2 gm/dL (6.4-8.2)
[2019-07-29 16:23] LABS: THYROID STIMULATING HORMONE 3.47 uIU/mL (0.465-4.680)
== END ==
LOC: ZCOL.LAB 10:12
PROVIDERS: Family Medicine
DX: E11.21 Type 2 diabetes mellitus with diabetic nephropathy (principal); E03.9 Hypothyroidism, unspecified

== ENCOUNTER → 2019-09-18 | Outpatient (CLI) | payer MEDICARE, MEDICAID | LOC: ZCOL.LAB 20:54 | DX: N39.0 Urinary tract infection, site not specified (principal) ==

== ENCOUNTER → 2019-09-18 | Outpatient (CLI) | payer MEDICARE, MEDICAID ==
[2019-09-18 21:31] LABS: COLLECTION METHOD CLEAN CATCH
[2019-09-18 21:47] LABS: MUCOUS Present /lpf; PH 5 (5-8); SQUAMOUS EPITHELIAL 0-2 /hpf; URINE APPEARANCE Hazy; URINE BACTERIA Moderate /hpf; URINE BILIRUBIN Negative (NEGATIVE); URINE BLOOD Negative (NEGATIVE); URINE COLOR Yellow; URINE GLUCOSE Negative (NEGATIVE); URINE KETONE Negative (NEGATIVE); URINE LEUKOCYTE ESTERASE Trace (NEGATIVE); URINE NITRATE Negative (NEGATIVE); URINE PROTEIN(semi-quant) Negative (NEGATIVE); URINE RBC None Seen /hpf; URINE UROBILINOGEN Negative (NEGATIVE)
== END ==
LOC: ZCOL.LAB 19:57
PROVIDERS: Family Medicine
DX: N39.0 Urinary tract infection, site not specified (principal)

== ENCOUNTER 2019-09-24 13:05 | Emergency (ER) | payer MEDICARE, MEDICAID ==
[~2019-09-24] VITALS: Ht 162.6 cm; Wt 109.1 kg
[2019-09-24 13:13] VITALS: TEMP 97.8
[2019-09-24 14:26] LABS: BASO % 0.3 % (0.0-2.0); EOS # 0.1 (0.0-0.7); EOS % 1.2 % (0-4.0); GRAN # 8.6 (1.4-6.5); GRAN % 80.4 % (42.2-75.2); HEMATOCRIT 37.9 % (37.0-47.0); HEMOGLOBIN 12.2 g/dl (12.5-16.0); LYMPH # 1.5 (1.2-3.4); LYMPH % 13.7 % (20.0-51.0); MEAN CELL VOLUME 94 fl (80.0-100.0); MEAN CORPUSCULAR HEMOGLOBIN 30 pg (27.0-31.0); MEAN CORPUSCULAR HGB CONC 32 g/dl (33.0-37.0); MEAN PLATELET VOLUME 9.1 fl (7.4-10.4); MONO # 0.4 (0.1-0.6); MONO % 4.1 % (1.7-9.3); PLATELET COUNT 258 K/mm3 (130-400); RED BLOOD COUNT 4.05 M/mm3 (4.10-5.30); REDCELL DISTRIBUTION WIDTH-CV 12.7 % (11.5-14.5)
[2019-09-24 14:40] LABS: ALANINE AMINOTRANSFERASE 19 U/L (4-34); ALBUMIN 4.2 gm/dL (3.5-5.0); ALKALINE PHOSPHATASE 129 U/L (50-136); ANION GAP 8 mmol/L (7-16); AST,SGOT 24 U/L (15-37); BILIRUBIN,TOTAL 0.5 mg/dL (0.0-1.0); BLOOD UREA NITROGEN 23 mg/dL (7-17); C-REACTIVE PROTEIN 8.7 mg/dL (0.0-0.9); CALCIUM 9.2 mg/dL (8.4-10.2); CARBON DIOXIDE 29 mmol/L (22-30); CHLORIDE 96 mmol/L (98-107); CREATININE, serum 1.34 (0.52-1.25); GLUCOSE 248 mg/dL (74-106); SODIUM 134 mmol/L (137-145); TOTAL PROTEIN 7.6 gm/dL (6.4-8.2)
[2019-09-24 14:50] LABS: TROPONIN-I < 0.012 ng/mL (0.000-0.035)
[2019-09-24 15:18] LABS: ERYTHROCYTE SEDIMENTATION RATE 62 mm/hr (0-30)
--- NOTE | 2019-09-24 16:24 | NUR ---
NÉSTOR was contacted by the patient's RN in the ED. The patient has been residing at [facility] for long-term care and she signed herself out AMA this morning. NÉSTOR contacted Nick at [facility] to follow up about this. Nick reports that the patient became upset this morning and became verbally aggressive towards staff and residents. [facility] had [facility] and the patient was agreeable to go there. [facility] then transferred her to the ED with right wrist and hand pain. Nick, at [facility], reports that they will not accept the patient back; until she has had a short stay at an inpatient psych, for the safety of the patient and the other residents and staff. Nick reports that she will contact Gilbert, [facility] Super[facility], to inform of this. Nick reports that she has also been in contact with APS. Daxa Peterson is the patient's APS worker. NÉSTOR then received a phone call from Gilbert. Gilbert reports that they are now looking at inpatient psych for the patient at either [facility] in [place] or [facility] in [place], [place] and will notify us when they have placement. NÉSTOR updated the patient's RN on the above information.
[2019-09-24 21:11] VITALS: BP 123/55
[2019-09-25 00:28] VITALS: PULSE 76
== END 2019-09-25 00:32 | disposition home or self-care (01) ==
LOC: COL.ER 13:05
PROVIDERS: Physician Assistant
DX: L03.113 Cellulitis of right upper limb (principal); F20.9 Schizophrenia, unspecified; F32.9 Major depressive disorder, single episode, unspecified; F17.210 Nicotine dependence, cigarettes, uncomplicated; Z79.4 Long term (current) use of insulin; Z90.89 Acquired absence of other organs
CPT/HCPCS: J2405; J7030; Q4021